=== PATIENT | female | born 1935 | race Asian ===

== ENCOUNTER 2016-02-13 02:26 | Emergency (ER) | payer MEDICARE, OTHER ==
[2016-02-13] MEDS ORDERED: ONDANSETRON 4 MG/2ML 2 ML VIAL ONE (03:01)
[2016-02-13] MEDS ORDERED: SODIUM CHLORIDE 0.9% 1,000 ML ONE (03:01)
[2016-02-13 03:08] LABS: ABSOLUTE NEUTROPHIL COUNT 3.6 K/mm3 (1.8-7.7); BASO % 0.6 % (0.2-1.0); EOS # 0.3 (0.0-0.5); EOS % 3.5 % (0.9-2.9); HEMATOCRIT 40.1 % (37.0-47.0); IMM NEUT% 0.3 % (0-1); LYMPH # 2.6 (1.0-4.8); LYMPH % 35.9 % (15-45); MEAN CELL VOLUME 92.6 fl (81.0-99.0); MEAN CORPUSCULAR HGB CONC 32.4 g/dl (33.0-37.0); MEAN PLATELET VOLUME 10.4 fl (7.4-10.4); MONO # 0.7 (0.0-0.8); MONO % 9.8 % (4-12); NEUT % 49.9 % (43-75); PLATELET COUNT 218 K/mm3 (130-400); RED CELL DISTRIBUTION WIDTH 12.5 % (11.5-14.5)
[2016-02-13 03:22] LABS: ALB/GLOB RATIO 0.9 (>1.0); ALBUMIN 3.5 gm/dL (3.5-5.7); CALCIUM 8.8 mg/dL (8.6-10.3)
[2016-02-13 03:41] LABS: TROPONIN I 0.02 ng/ml (0.0-0.06)
[2016-02-13 03:44] LABS: URINE BILIRUBIN NEGATIVE (NEGATIVE); URINE BLOOD NEGATIVE (NEGATIVE); URINE GLUCOSE (UA) NEGATIVE (NEGATIVE); URINE LEUKOCYTE ESTERASE TRACE (NEGATIVE); URINE NITRITE NEGATIVE (NEGATIVE); URINE PROTEIN NEGATIVE (NEGATIVE); URINE UROBILINOGEN NORMAL (0-1 mg/dl)
[2016-02-13 03:45] LABS: CKMB ISOENZYME 1.6 ng/ml (0.6-6.3)
[2016-02-13 03:46] LABS: URINE APPEARANCE CLEAR; URINE COLOR STRAW
[2016-02-13 03:53] LABS: URINE BACTERIA FEW; URINE EPITHELIAL CELLS FEW /hpf; URINE RBC 0 /hpf; URINE WBC 0-1 /hpf
[2016-02-13] MEDS ORDERED: DIAZEPAM 5 MG/ML SYRINGE 2 ML ONE (04:12)
--- NOTE | 2016-02-13 08:43 | CT ---
HEAD W/O CON COMPARISON: None HISTORY: 81-year-old female, impression-speaking only, with weakness and trouble ambulating at home. TECHNIQUE: Using a [employer] Aquilion [address] scanner, images were obtained through the head. An automated dose reduction technique was used to minimize patient radiation dose. DOSE INFORMATION: CTDIvol (mGy): 51.70 DLP(mGycm): 887.30 FINDINGS: Mass: None Intracranial Hemorrhage: None Acute Infarction: None Cerebral hemispheres: Mild atrophy and mild amount of low-attenuation in the white matter. Basal ganglia: Low-attenuation foci in the basal ganglia and the external capsules. Thalami: Normal Brainstem: Normal Cerebellum: Normal Ventricles: Normal Basilar cisterns: Normal Corpus callosum: Normal Pituitary fossa: Normal Middle ears and mastoid air cells: Normal Orbits and sinuses: Normal Skull and scalp: Normal Dural sinuses and vessels: Normal dural sinuses. Atherosclerotic calcific plaquing of the internal carotid arteries. IMPRESSION: No acute finding. Chronic small vessel ischemic change and the atrophic cerebral hemispheres, external capsules, and basal ganglia. Preliminary report by [employer] radiologist Joanne Roman M.D. 02/13/2016 at 04:53
== END 2016-02-13 06:36 | disposition home or self-care (01) ==
LOC: ED 02:26
DX: M62.81 Muscle weakness (generalized) (principal); E86.0 Dehydration; R11.0 Nausea; I10 Essential (primary) hypertension; E03.9 Hypothyroidism, unspecified
CPT/HCPCS: 85025; 82553; 87086; 80053; 87186; 84484; 81001; 87077; 70450; 99284; 96374; 93005; 99283; J3360; J2405; J7030